=== PATIENT | female | born 2000 | race Caucasian/White ===

== ENCOUNTER 2022-01-10 23:21 | Emergency (ER) | payer OTHER ==
[~2022-01-10 23:21] MED LIST: NORCO 5-325 TA1 EACH PO
[2022-01-11 00:34] LABS: BASOPHIL 0.5 % (0-2); EOSINOPHIL 1.4 % (0-5); HCT 38.8 % (37.0-47.0); HGB 13.1 g/dl (12.5-16.0); LYMPHOCYTE 33.7 % (15-48); MCH 30.5 pg (25.0-31.0); MCHC 33.8 g/dL (32.0-36.0); MCV 90.4 fL (78.0-100.0); MONOCYTE 7.9 % (0-12); MPV 10.9 fL (6.0-9.5); NEUTROPHIL 56.1 % (41-80); NRBC 0; PLT 257 K/uL (150-400); RBC 4.29 M/uL (4.20-5.40); RDW 12.8 % (11.5-14.0); WBC 8.5 K/uL (4.0-10.5)
[2022-01-11 00:53] LABS: ALBUMIN 3.6 g/dL (3.4-5.0); BILIRUBIN - TOTAL 0.3 mg/dL (0.2-1.0); BUN/CREAT RATIO (CALC) 21.3 RATIO; CREATININE 0.61 mg/dL (0.51-0.95); GLOBULIN (CALCULATION) 3.6 g/dL; POTASSIUM 3.5 mmol/L (3.5-5.1); TOTAL PROTEIN 7.2 g/dL (6.4-8.2)
[2022-01-11 00:56] LABS: BILIRUBIN NEGATIVE (NEGATIVE); BLOOD NEGATIVE Ery/uL (NEGATIVE); CLARITY CLEAR (CLEAR); COLOR YELLOW (YELLOW); GLUCOSE (U) NORMAL (NORMAL); LEUKOCYTES NEGATIVE Leu/uL (NEGATIVE); NITRITE NEGATIVE (NEGATIVE); PROTEIN NEGATIVE (NEGATIVE); SPECIFIC GRAVITY 1.015 (1.001-1.030); UROBILINOGEN 0.2 mg/dL (0.2-1.0)
[2022-01-11 01:04] LABS: BACTERIA TRACE; URINARY WBC RARE
[2022-01-14 22:08] LABS: CHLAMYDIA TRACHOMATIS, NAA Negative (Negative); NEISSERIA GONORRHOEAE, NAA Negative (Negative)
== END 2022-01-11 05:25 | disposition home or self-care (01) ==
LOC: FER 23:21
PROVIDERS: Emergency Medicine
DX: O20.9 Hemorrhage in early pregnancy, unspecified (principal); Z88.2 Allergy status to sulfonamides; Z88.0 Allergy status to penicillin; Z88.1 Allergy status to other antibiotic agents; Z3A.01 Less than 8 weeks gestation of pregnancy
CPT/HCPCS: 36415; 76801; 80053; 81001; 84702; 85025; 86850; 86900; 86901; 87210; 87491; 87591